=== PATIENT | female | born 1990 | race African-American/Black ===

== ENCOUNTER 2016-06-17 14:20 | Emergency (ER) | payer BC, MEDICAID ==
[~2016-06-17] VITALS: Ht 170.2 cm; Wt 113.0 kg
[~2016-06-17 14:20] MED LIST: DEPAKOTE; FERR-63 PO; IBUP-779 PO; MULT-783 PO
[2016-06-17] MEDS ORDERED: ACETAMINOPHEN 650MG/20.3ML UDC PO ONE (17:30)
[2016-06-17 17:57] VITALS: BP 129/66
[2016-06-17] MEDS ORDERED: LIDOCAINE HCL 1% 20ML VIAL (Pyxis) INJ MC ONE (18:00)
[2016-06-17] MEDS ORDERED: BACITRACIN ZINC OINT UDPKT TOP ONE (18:00)
== END 2016-06-17 18:57 | disposition home or self-care (01) ==
LOC: ER 14:20
DX: O26.892 Other specified pregnancy related conditions, second trimester (principal); N76.0 Acute vaginitis; Z3A.23 23 weeks gestation of pregnancy; J45.909 Unspecified asthma, uncomplicated
CPT/HCPCS: 56405; 99284; J3490; Z7610; 10060; 99283